=== PATIENT | female | born 1995 | race Caucasian/White ===

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

== ENCOUNTER 2017-03-25 08:47 | Emergency (ER) | END 2017-03-25 13:04 | disposition home or self-care (01) | DX: N30.00 Acute cystitis without hematuria (principal); N83.299 Other ovarian cyst, unspecified side | CPT/HCPCS: 74177; 80053; 81001; 85025; 99284; Q9967 ==